=== PATIENT | male | born 1965 | race Caucasian/White ===

== ENCOUNTER 2017-07-13 16:26 | Inpatient (IN) | payer OTHER ==
[~2017-07-13] VITALS: Ht 177.8 cm; Wt 74.8 kg
--- NOTE | 2017-07-13 17:00 | NUR ---
PATIENT TO ED DT LET CLAVICLE LUMP THAT WAS NOTICED YESTERDAY. PATIENT IS COMPLAINING OF DISCOMFORT ON THE SITE. LEFT CLAVICLE NOTED WITH LUMP, REDNESS. PATIENT IS AFEBRILE. DENIES NAUSEA AND VOMITTING. VSS
--- NOTE | 2017-07-13 18:15 | NUR ---
MD AGGARWAL AT BEDSIDE
[2017-07-13 18:41] LABS: BASOPHILS # (AUTO) 0.1 /CMM (0.0-0.2); BASOPHILS % (AUTO) 0.8 % (0.0-2.0); EOSINOPHILS % (AUTO) 0.6 % (0.0-6.0); HEMATOCRIT 39 % (39-51); HEMOGLOBIN 13.4 g/dL (13.5-17.5); LYMPHOCYTES # (AUTO) 1.1 /CMM (0.8-4.8); LYMPHOCYTES % (AUTO) 10.3 % (20.0-44.0); MEAN CORPUSCULAR HGB CONC 34 g/dl (31.0-36.0); MEAN CORPUSCULAR VOLUME 78 fL (80-96); MONOCYTES # (AUTO) 0.6 /CMM (0.1-1.30); MONOCYTES % (AUTO) 5.7 % (2.0-12.0); NEUTROPHILS # (AUTO) 8.8 /CMM (1.8-8.9); NEUTROPHILS % (AUTO) 82.6 % (43.0-81.0); PLATELET COUNT (AUTO) 395 /CMM (150-450); RDW COEFFICIENT OF VARIATION 12.4 (11.5-15.0); RED BLOOD CELL COUNT(AUTO) 5.03 MIL/uL (4.5-6.0); WHITE BLOOD COUNT (AUTO) 10.6 K/uL (4.3-11.0)
[2017-07-13 19:06] LABS: ALBUMIN 2.5 g/dL (3.4-5.0); BILIRUBIN,TOTAL 0.3 mg/dL (0.2-1.0); CREATININE 0.9 mg/dL (0.6-1.3); POTASSIUM 4.4 mmol/L (3.5-5.1); TOTAL PROTEIN, SERUM 8.2 g/dL (6.4-8.2)
--- NOTE | 2017-07-13 19:15 | NUR ---
PATIENT WAS TAKEN TO CT
[2017-07-13] MEDS ORDERED: IOHEXOL-300 100 ML VIAL IV ONE (19:20)
[2017-07-13] MEDS ORDERED: IV NS 0.9% 250 ML IV ONE (19:20)
[2017-07-13 19:23] LABS: INR 0.9 (0.85-1.15)
[2017-07-13] MEDS ORDERED: IV NS 0.9% 1,000 ML BAG IV ONE ×2 (19:30)
--- NOTE | 2017-07-13 19:31 | NUR ---
PATIENT STILL IN CT
[2017-07-13] MEDS ORDERED: INSULIN ASPART/LISPRO 100 UNIT/ML CARTRIDGE SQ STA (20:53)
[2017-07-13] MEDS ORDERED: PIPERACILLIN /TAZOBACTAM 3.375 G in IV D5W 50 ML IV ONE (21:00)
[2017-07-13] MEDS ORDERED: VANCOMYCIN 1 GM in IV D5W 250 ML IV ONE (21:00)
[2017-07-13] MEDS ORDERED: VANCOMYCIN 1 GM VIAL ONE (21:02)
[2017-07-13] MEDS ORDERED: PIPERACILLIN /TAZOBACTAM 3.375 G VIAL IV ONE (21:02)
[2017-07-13] MEDS ORDERED: INSULIN LISPRO/ASPART 100 UNIT/ML CARTRIDGE SQ ONE (21:10)
--- NOTE | 2017-07-13 21:30 | NUR ---
BS IS 407. TO GIVE 6 UNITS OF LISPRO INSULIN
--- NOTE | 2017-07-13 21:32 | NUR ---
WITNESSED RYLAND STERN FOR INSULIN LISPRO ADMINISTRATION.
--- NOTE | 2017-07-13 22:05 | NUR ---
ADMIT TO BED 307-1 RYLAND [place]
--- NOTE | 2017-07-13 22:11 | NUR ---
REPORT GIVEN TO RYLAND OH FOR BLAINE-- VSS
[2017-07-13] MEDS ORDERED: ONDANSETRON HCL/PF 4 MG/2 ML VIAL IVP PRN (22:30)
[2017-07-13] MEDS ORDERED: Z GUARD REMEDY 2 OZ OINT TP PRN (22:30)
[2017-07-13] MEDS ORDERED: MAGNESIUM HYDROXIDE 30 ML UDC PO PRN (22:30)
[2017-07-13] MEDS ORDERED: MAG HYDROX/AL HYDROX/SIMETH 30 ML UDC PO PRN (22:30)
[2017-07-13 22:35] VITALS: BP 137/74
[2017-07-13] MEDS: HYDROCODONE/APAP 5/325MG 1 EACH TABLET PO PRN (23:06)
[2017-07-13] MEDS: IV 1/2NS 1000 ML 1,000 ML IV PRN (23:07)
[2017-07-14] VITALS: BP 137/74
[2017-07-14] MEDS ORDERED: DEXTROSE 50%-WATER 50 ML DISP.SYRIN IV PRN
[2017-07-14] MEDS: BLOOD SUGAR DIAGNOSTIC 1 EACH STRIP IN SCH ×6 (00:15→22:19)
[2017-07-14] MEDS: INSULIN REGULAR, HUMAN 100 UNIT/ML 3 ML VIAL SQ PRN ×5 (00:23→22:17)
[2017-07-14] MEDS: PANTOPRAZOLE 40 MG VIAL IV SCH (00:24)
[2017-07-14] MEDS ORDERED: CEFAZOLIN 1 GM ONE ×2 (00:26→02:38)
[2017-07-14] MEDS ORDERED: DOXYCYCLINE 100 MG VIAL ONE (00:27)
[2017-07-14] MEDS: CEFAZOLIN IV SCH ×2 (00:46→05:01)
[2017-07-14] MEDS: D5W IV SCH ×2 (00:46→05:01)
[2017-07-14] MEDS: HYDROCODONE/APAP 5/325MG 1 EACH TABLET PO PRN ×2 (06:07→22:19)
[2017-07-14 06:37] LABS: BASOPHILS % (AUTO) 0.1 % (0.0-2.0); EOSINOPHILS % (AUTO) 0.2 % (0.0-6.0); HEMATOCRIT 36 % (39-51); HEMOGLOBIN 12.4 g/dL (13.5-17.5); LYMPHOCYTES # (AUTO) 1.2 /CMM (0.8-4.8); LYMPHOCYTES % (AUTO) 11.4 % (20.0-44.0); MEAN CORPUSCULAR HGB CONC 35 g/dl (31.0-36.0); MEAN CORPUSCULAR VOLUME 77 fL (80-96); MONOCYTES # (AUTO) 0.6 /CMM (0.1-1.30); MONOCYTES % (AUTO) 5.4 % (2.0-12.0); NEUTROPHILS # (AUTO) 8.8 /CMM (1.8-8.9); NEUTROPHILS % (AUTO) 82.9 % (43.0-81.0); PLATELET COUNT (AUTO) 378 /CMM (150-450); RDW COEFFICIENT OF VARIATION 13.1 (11.5-15.0); RED BLOOD CELL COUNT(AUTO) 4.63 MIL/uL (4.5-6.0); WHITE BLOOD COUNT (AUTO) 10.6 K/uL (4.3-11.0)
[2017-07-14 06:52] LABS: CALCIUM, SERUM 8.1 mg/dL (8.5-10.1); CREATININE 0.6 mg/dL (0.6-1.3); MAGNESIUM 1.8 mg/dL (1.8-2.4); PHOSPHORUS 2.2 mg/dL (2.5-4.9); POTASSIUM 3.6 mmol/L (3.5-5.1)
--- NOTE | 2017-07-14 07:35 | NUR ---
RN OPENING NOTES RECEIVED PATIENT IN RESTING. A/OX4. NO ACUTE DISTRESS, NO SOB NOTED. DENIED PAIN OR DISCOMFORT AT THIS TIME. IV SITE INTACT AND PATENT. LUMP ON LEFT UPPER CHEST NOTED. KEPT PATIENT SAFE AND COMFORTABLE IN BED. BED IN LOCKED/LOW POSITION, SIDERAILS UPX2, CALL LIGHT WITHIN REACH. WILL CONTINUE TO MONITOR ACCORDINGLY.
[2017-07-14 08:00] VITALS: BP 121/72
[2017-07-14 09:17] LABS: LYMPHOCYTES % (MANUAL) 11 % (16-48); MONOCYTES % (MANUAL) 6 % (0-11.0); NEUTROPHILS % (MANUAL) 83 (42-76)
[2017-07-14] MEDS: DOXYCYCLINE 100 MG in IV NS 0.9% 100 ML IV SCH ×2 (09:58→21:24)
[2017-07-14] MEDS: CEFAZOLIN 1 GM in IV D5W 50 ML IV SCH ×2 (14:47→20:47)
[2017-07-14] MEDS ORDERED: K PHOS NEUTRAL 250 MG TABLET PO ONE (15:30)
[2017-07-14 16:00] VITALS: BP 123/68
[2017-07-14] MEDS: LACTOBACILLUS RHAMNOSUS GG 1 EACH CAP.SPRINK PO SCH (16:28)
[2017-07-14] MEDS ORDERED: MORPHINE SULFATE INJ 2 MG/ML DISP.SYRIN IV PRN (19:00)
--- NOTE | 2017-07-14 19:16 | NUR ---
RN NOTES NO ACUTE DISTRESS, NO SOB NOTED. DENIED PAIN AND DISCOMFORT AT THE MOMENT. ALL NEEDS ATTENDED AND PROVIDED. KEPT PATIENT COMFORTABLE IN BED. BED IN LOW/LOCKED POSITION, SIDRAILS UPX2, CALL LIGHT IN REACH. ENDORSED TO NIGHT RN FOR BLAINE.
--- NOTE | 2017-07-14 19:30 | NUR ---
MS/RN RECEIVE PATIENT AWAKE, ALERT, ORIENTED, COMFORTABLE, NO C/O PAIN, NO DISTRESS NOTED, CALL LIGHT IN REACH. WILL MONITOR.
[2017-07-14 20:00] VITALS: BP 123/78
--- NOTE | 2017-07-14 23:35 | NUR ---
MS/RN PATIENT IS SLEEPING AT THIS TIME, EASILY AROUSABLE, APPEAR COMFORTABLE, NO SIGNS OF DISTRESS NOTED, CALL LIGHT IN REACH, WILL CONTINUE TO MONITOR.
[2017-07-15] MEDS: PANTOPRAZOLE 40 MG VIAL IV SCH ×2 (00:14→23:53)
[2017-07-15] MEDS: INSULIN REGULAR, HUMAN 100 UNIT/ML 3 ML VIAL SQ PRN ×5 (01:36→21:32)
[2017-07-15] MEDS: BLOOD SUGAR DIAGNOSTIC 1 EACH STRIP IN SCH ×6 (01:37→21:31)
[2017-07-15] MEDS: IV 1/2NS 1000 ML 1,000 ML IV PRN (03:23)
[2017-07-15] MEDS: CEFAZOLIN 1 GM in IV D5W 50 ML IV SCH ×2 (05:02→12:40)
--- NOTE | 2017-07-15 06:33 | NUR ---
MS/RN PATIENT AWAKE AT THIS TIME, COMFORTABLE, NO DISTRESS NOTE, ALL NEEDS ATTENDED AT THIS TIME. WILL CONTINUE TO MONITOR.
[2017-07-15 07:09] LABS: BASOPHILS % (AUTO) 0.2 % (0.0-2.0); EOSINOPHILS % (AUTO) 0.5 % (0.0-6.0); HEMATOCRIT 36 % (39-51); HEMOGLOBIN 12.4 g/dL (13.5-17.5); LYMPHOCYTES # (AUTO) 1.2 /CMM (0.8-4.8); LYMPHOCYTES % (AUTO) 13.7 % (20.0-44.0); MEAN CORPUSCULAR HGB CONC 34 g/dl (31.0-36.0); MEAN CORPUSCULAR VOLUME 78 fL (80-96); MONOCYTES # (AUTO) 0.7 /CMM (0.1-1.30); MONOCYTES % (AUTO) 8.4 % (2.0-12.0); NEUTROPHILS # (AUTO) 6.6 /CMM (1.8-8.9); NEUTROPHILS % (AUTO) 77.2 % (43.0-81.0); PLATELET COUNT (AUTO) 369 /CMM (150-450); RDW COEFFICIENT OF VARIATION 13.1 (11.5-15.0); RED BLOOD CELL COUNT(AUTO) 4.67 MIL/uL (4.5-6.0); WHITE BLOOD COUNT (AUTO) 8.6 K/uL (4.3-11.0)
[2017-07-15 07:35] LABS: CALCIUM, SERUM 7.9 mg/dL (8.5-10.1); CREATININE 0.6 mg/dL (0.6-1.3); PHOSPHORUS 3.3 mg/dL (2.5-4.9); POTASSIUM 3.4 mmol/L (3.5-5.1)
[2017-07-15] MEDS: LACTOBACILLUS RHAMNOSUS GG 1 EACH CAP.SPRINK PO SCH ×2 (08:21→16:33)
[2017-07-15] MEDS: FENTANYL PF 100MCG/2ML AMPUL IV PRN ×2 (08:23→16:42)
[2017-07-15 08:53] VITALS: BP 129/74
[2017-07-15] MEDS: DOXYCYCLINE 100 MG in IV NS 0.9% 100 ML IV SCH (08:56)
[2017-07-15] MEDS ORDERED: POTASSIUM CHLORIDE 20 MEQ TAB.PRT.SR PO ONE (11:00)
[2017-07-15 16:02] VITALS: BP 152/69
--- NOTE | 2017-07-15 17:03 | NUR ---
[place] NOTES BS 412, 20 UNITS REGULAR INSULIN GIVEN, JUAN JOSE RIVERO NP NOTIFIED Addendum: 07/15/17 at 1704 by DEQUAN COSTELLO DANIELA HOBBS
[2017-07-15] MEDS: INSULIN LISPRO/ASPART 100 UNIT/ML CARTRIDGE SQ SCH (19:22)
--- NOTE | 2017-07-15 19:25 | NUR ---
RN CLOSING NOTES PATIENT IN BED RESTING. NO ACUTE DISTRESS, NO SOB NOTED. ALL NEEDS ATTENDED AND PROVIDED. PAIN MANAGEMENT DONE, PAIN MEDS GIVEN ORDERED. KEPT PATIENT SAFE AND COMFORTABLE. BED IN LOW/LOCKED POSITION, SIDERAILS UPX2, CALL LIGHT IN REACH. ENDORSED TO NIGHT RN FOR BLAINE.
--- NOTE | 2017-07-15 19:25 | NUR ---
MS/RN NOTES RECEIVED PT. LYING IN BED. PT. IS AWAKE, ALERT AND ORIENTED X 4. BREATHING EVEN AND UNLABORED ON ROOM AIR. NO SOB, RESPIRATORY DISTRESS OR COMPLAINTS OF PAIN NOTED AT THIS TIME. PT. WITH RIGHT FOREARM 22 GAUGE PERIPHERAL IV PRESENT, PATENT AND INTACT ADMINISTERING TO PT. 1/2 NS @ 75 ML/HR. NO S/S OF HYPO/HYPERGLYCEMIA NOTED AT THIS TIME. WILL CONTINUE WITH EVERY 4 HOUR ACCUCHECKS ORDERED. BED LOCKED AND IN LOWEST POSITION, SIDE RAILS UP X2, CALL LIGHT WITHIN REACH, WILL CONTINUE TO MONITOR.
[2017-07-15 20:00] VITALS: BP 128/65
[2017-07-15] MEDS ORDERED: FEE PK DOSING 1 MIN EA MC ONE (20:32)
[2017-07-15] MEDS ORDERED: VANCOMYCIN 1 GM in IV D5W 250 ML IV ONE (21:00)
[2017-07-15] MEDS: INSULIN GLARGINE, 100 UNIT/ML CARTRIDGE SQ SCH (21:33)
[2017-07-15] MEDS: PIPERACILLIN /TAZOBACTAM 3.375 G in IV D5W 50 ML IV SCH (23:53)
[2017-07-16] MEDS: BLOOD SUGAR DIAGNOSTIC 1 EACH STRIP IN SCH ×6 (01:34→21:45)
[2017-07-16] MEDS: IV 1/2NS 1000 ML 1,000 ML IV PRN ×2 (01:36→21:47)
[2017-07-16] MEDS: INSULIN REGULAR, HUMAN 100 UNIT/ML 3 ML VIAL SQ PRN ×6 (01:36→21:46)
[2017-07-16] MEDS: PIPERACILLIN /TAZOBACTAM 3.375 G in IV D5W 50 ML IV SCH ×3 (05:45→17:37)
[2017-07-16 06:29] LABS: CALCIUM, SERUM 8.3 mg/dL (8.5-10.1); CREATININE 0.6 mg/dL (0.6-1.3); POTASSIUM 3.9 mmol/L (3.5-5.1)
[2017-07-16 06:30] LABS: HDL CHOLESTEROL 28 mg/dL (40-60); LDL 62 mg/dL (0-99); TRIGLYCERIDES 87 mg/dL (30-150)
[2017-07-16 06:32] LABS: BASOPHILS % (AUTO) 0.1 % (0.0-2.0); EOSINOPHILS % (AUTO) 0.9 % (0.0-6.0); HEMATOCRIT 37 % (39-51); HEMOGLOBIN 12.5 g/dL (13.5-17.5); LYMPHOCYTES # (AUTO) 1.2 /CMM (0.8-4.8); LYMPHOCYTES % (AUTO) 19.3 % (20.0-44.0); MEAN CORPUSCULAR HGB CONC 34 g/dl (31.0-36.0); MEAN CORPUSCULAR VOLUME 78 fL (80-96); MONOCYTES # (AUTO) 0.5 /CMM (0.1-1.30); NEUTROPHILS # (AUTO) 4.6 /CMM (1.8-8.9); NEUTROPHILS % (AUTO) 71.7 % (43.0-81.0); PLATELET COUNT (AUTO) 386 /CMM (150-450); RED BLOOD CELL COUNT(AUTO) 4.71 MIL/uL (4.5-6.0); WHITE BLOOD COUNT (AUTO) 6.4 K/uL (4.3-11.0)
--- NOTE | 2017-07-16 06:32 | NUR ---
MS/RN NOTES PT. IS LYING IN BED RESTING. BREATHING EVEN AND UNLABORED ON ROOM AIR. NO SOB, RESPIRATORY DISTRESS OR COMPLAINTS OF PAIN NOTED AT THIS TIME AND THROUGHOUT SHIFT. PT. WITH RIGHT FOREARM 22 GAUGE PERIPHERAL IV PRESENT, PATENT AND INTACT ADMINISTERING TO PT. 1/2 NS @ 75 ML/HR. NO S/S OF HYPO/HYPERGLYCEMIA NOTED AT THIS TIME AND THROUGHOUT SHIFT. ALL PT. NEEDS MET. BED LOCKED AND IN LOWEST POSITION, SIDE RAILS UP X2, CALL LIGHT WITHIN REACH, WILL ENDORSE TO DAYSHIFT NURSE FOR CONTINUITY OF CARE.
[2017-07-16 06:41] LABS: CHOLESTEROL 101 mg/dL (<200)
[2017-07-16] MEDS: VANCOMYCIN 1 GM in IV D5W 250 ML IV SCH ×3 (06:48→21:47)
[2017-07-16 08:00] VITALS: BP 122/74
--- NOTE | 2017-07-16 08:00 | NUR ---
MS/RN AM NOTES PT. IS LYING IN BED RESTING. BREATHING EVEN AND UNLABORED ON ROOM AIR. NO SOB, RESPIRATORY DISTRESS.WITH COMPLAINTS OF LT CW PAIN NOTED -NORCO GIVEN FOR PAIN MGT.WITH RIGHT FOREARM 22 GAUGE PERIPHERAL IV PRESENT, PATENT AND INTACT ADMINISTERING TO PT. 1/2 NS @ 75 ML/HR INFUSING WELL. NO S/S OF HYPO/HYPERGLYCEMIA NOTED.PT. NEEDS MET. BED LOCKED AND IN LOWEST POSITION, SIDE RAILS UP X2, CALL LIGHT WITHIN REACH,
[2017-07-16] MEDS: LACTOBACILLUS RHAMNOSUS GG 1 EACH CAP.SPRINK PO SCH ×2 (08:28→17:37)
[2017-07-16] MEDS: HYDROCODONE/APAP 5/325MG 1 EACH TABLET PO PRN ×3 (08:28→21:49)
[2017-07-16] MEDS: INSULIN LISPRO/ASPART 100 UNIT/ML CARTRIDGE SQ SCH ×2 (08:34→17:41)
--- NOTE | 2017-07-16 15:33 | NUR ---
DR ARVIZU CAME TO SEE THE PT AND STATED THAT THE PT IS HIV POSITIVE DUE TO THE LAB TEST RESULT.
--- NOTE | 2017-07-16 15:34 | NUR ---
PAGED PHYLLIS JACK NP TO NOTIFY HIM ABOUT THE HIV RESULT.
[2017-07-16 16:00] VITALS: BP 118/73
--- NOTE | 2017-07-16 18:39 | NUR ---
PT RESTING IN BED DENYING ANY PAIN OR DISTRESS.WATCHING TV.CALL LIGHT PLACED WITHIN REACH.
--- NOTE | 2017-07-16 19:10 | NUR ---
MS/RN NOTES RECEIVED PT. LYING IN BED. PT. IS AWAKE, ALERT AND ORIENTED X 4. BREATHING EVEN AND UNLABORED ON ROOM AIR. NO SOB, RESPIRATORY DISTRESS OR COMPLAINTS OF PAIN NOTED AT THIS TIME. PT. WITH RIGHT FOREARM 22 GAUGE PERIPHERAL IV PRESENT, PATENT AND INTACT ADMINISTERING TO PT. 1/2 NS @ 75 ML/HR. BED LOCKED AND IN LOWEST POSITION, SIDE RAILS UP X2, CALL LIGHT WITHIN REACH, WILL CONTINUE TO MONITOR.
[2017-07-16 20:00] VITALS: BP 118/67
[2017-07-16] MEDS: INSULIN GLARGINE, 100 UNIT/ML CARTRIDGE SQ SCH (21:47)
[2017-07-17] MEDS: PANTOPRAZOLE 40 MG VIAL IV SCH ×2 (00:40→23:59)
[2017-07-17] MEDS: PIPERACILLIN /TAZOBACTAM 3.375 G in IV D5W 50 ML IV SCH ×5 (00:40→23:59)
[2017-07-17] MEDS: BLOOD SUGAR DIAGNOSTIC 1 EACH STRIP IN SCH ×6 (01:04→21:16)
[2017-07-17] MEDS: INSULIN REGULAR, HUMAN 100 UNIT/ML 3 ML VIAL SQ PRN ×6 (01:05→21:18)
--- NOTE | 2017-07-17 03:20 | NUR ---
MS/RN NOTES GAVE REPORT AND ENDORSED PT. TO RYLAND MCKEON. PT. IS LYING IN BED RESTING. NO S/S OF HYPO/HYPERGLYCEMIA NOTED AT THIS TIME.
--- NOTE | 2017-07-17 03:43 | NUR ---
ms/rn notes RECEIVED ENDORSEMENT FROM RYLAND CLEMENTS FOR BLAINE, PATIENT RESTING COMFORTABLY WILL CONTINUE CARE, MONITOR HYPO/HYPERGLYCEMIA. ADMINISTER IV ANTIBIOTIC, CALL LIGHTS WITHIN REACH WILL MONITOR.
[2017-07-17] MEDS: VANCOMYCIN 1 GM in IV D5W 250 ML IV SCH ×3 (04:58→21:15)
[2017-07-17 06:08] LABS: *BASOS 0 % (Not Estab.); *EOS 2 % (Not Estab.); *EOS, ABSOLUTE 0.1 x10E3/uL (0.0-0.4); *HCT 36.5 % (37.5-51.0); *IMMATURE GRANULOCYTES 1 % (Not Estab.); *LYMPHOCYTES 20 % (Not Estab.); *LYMPHS, ABSOLUTE 1.3 x10E3/uL (0.7-3.1); *MCH 26.6 pg (26.6-33.0); *MCHC 32.9 g/dL (31.5-35.7); *MCV 81 fL (79-97); *MONOCYTES 8 % (Not Estab.); *MONOS, ABSOLUTE 0.5 x10E3/uL (0.1-0.9); *NEUTROPHILS 69 % (Not Estab.); *NEUTROPHILS, ABSOLUTE 4.4 x10E3/uL (1.4-7.0); *PLT 386 x10E3/uL (150-379); *RBC 4.51 x10E6/uL (4.14-5.80); *RDW 13.1 % (12.3-15.4)
--- NOTE | 2017-07-17 06:50 | NUR ---
307 ms/rn notes PATIENT IN BED, ALERT, ORIENTED ABLE TO VERBALIZE NEEDS, NO PAIN REPORTED, DISCUSSED PLAN OF CARE, BLOOD SUGAR CHECK, SLIDING SCALE INSULIN 8 UNIT GIVEN, ABLE TO WALK TO BATHROOM, KEPT COMFORTABLE, ABLE TO SLEEP DURING THE NIGHT, IV ANTIBITOIC INFUSED/ADMINISTERED , MONITORING FOR ANY S/S OF ADVERSE EFFECT, WILL ENDORSE TO AM RN FOR BLAINE.
--- NOTE | 2017-07-17 07:10 | NUR ---
RN OPENING NOTES RECEIVED PT. IN BED A&OX4. BREATHING UNLABORED, AND EVENLY ON ROOM AIR. NO S/S OF ACUTE DISTRESS. IV ANTIBIOTICS RUNNING. BED IS IN LOWEST, AND LOCKED POSITION. 2 SIDE RAILS UP, AND INSTRUCTED PT. TO USE CALL LIGHT FOR ASSISTANCE. ALL NEEDS MET. WILL CONTINUE TO ASSESS AND MONITOR.
[2017-07-17 07:39] LABS: CALCIUM, SERUM 8.2 mg/dL (8.5-10.1); CREATININE 0.7 mg/dL (0.6-1.3); POTASSIUM 4.1 mmol/L (3.5-5.1)
[2017-07-17] MEDS: ACETAMINOPHEN 325 MG TABLET PO PRN (07:43)
[2017-07-17 08:00] VITALS: BP 115/74
[2017-07-17] MEDS: LACTOBACILLUS RHAMNOSUS GG 1 EACH CAP.SPRINK PO SCH ×2 (08:52→18:04)
[2017-07-17] MEDS: INSULIN LISPRO/ASPART 100 UNIT/ML CARTRIDGE SQ SCH ×2 (08:57→18:24)
--- NOTE | 2017-07-17 09:00 | NUR ---
RN ACCUCHECK CORRECT BLOOD SUGAR IS 304 MG/DL, INCORRECTLY RECORDED IN EMAR 307 MG/DL. CORRECT INSULIN DOSAGE WAS ADMINISTERED PER SLIDING SCALE PROTOCOL.
[2017-07-17 12:10] LABS: *% CD 4 POS. LYMPH 20.5 % (30.8-58.5); *% CD 8 POS. LYMPH 64.8 % (12.0-35.5); *ABSOLUTE CD 4 HELPER 267 /uL (359-1519); *ABSOLUTE CD 8 SUPPRESSOR 842 /uL (109-897); *CD4/CD8 RATIO 0.32 (0.92-3.72)
[2017-07-17 16:00] VITALS: BP 120/71
[2017-07-17] MEDS ORDERED: PENICILLIN G BENZATHINE 2.4 MMU/4 ML ML IM ONE (17:00)
--- NOTE | 2017-07-17 19:30 | NUR ---
RN CLOSING NOTES PT. IS IN BED A&OX4. BREATHING UNLABORED, AND EVENLY ON ROOM AIR. NO S/S OF ACUTE DISTRESS. BED IS IN LOWEST, AND LOCKED POSITION. IV FLUIDS RUNNING AT 75 ML/HR. 2 SIDE RAILS UP, AND INSTRUCTED PT. TO USE CALL LIGHT FOR ASSISTANCE. ALL NEEDS MET. WILL ENDORSE REPORT TO NURSE.
--- NOTE | 2017-07-17 19:35 | NUR ---
MS RN NOTE RECEIVED PATIENT FROM DAY SHIFT, PATIENT IS ALERT AND ORIENTEDX4, AMBULATORY, DENIES RESPIRATORY DISTRESS OR PAIN AT THIS TIME. IV ON RIGHT FA IS PATENT AND INTACT, FLUID IS RUNNING. SRX2, BED IN LOW POSITION, CALL LIGHT WITHIN REACH, WILL CONTINUE TO MONITOR PATIENT.
[2017-07-17 20:00] VITALS: BP 113/67
[2017-07-17] MEDS: INSULIN GLARGINE, 100 UNIT/ML CARTRIDGE SQ SCH (21:17)
[2017-07-18] MEDS: IV 1/2NS 1000 ML 1,000 ML IV PRN ×2 (00:02→18:22)
[2017-07-18] MEDS: INSULIN REGULAR, HUMAN 100 UNIT/ML 3 ML VIAL SQ PRN ×6 (01:03→21:06)
[2017-07-18] MEDS: BLOOD SUGAR DIAGNOSTIC 1 EACH STRIP IN SCH ×6 (01:04→20:57)
[2017-07-18] MEDS: PIPERACILLIN /TAZOBACTAM 3.375 G in IV D5W 50 ML IV SCH ×2 (05:12→12:01)
[2017-07-18] MEDS: VANCOMYCIN 1 GM in IV D5W 250 ML IV SCH (06:09)
--- NOTE | 2017-07-18 06:44 | NUR ---
MS RN NOTE PATIENT IS RESTING IN BED COMFORTABLY, NO ACUTE EVENT NOTED THROUGHOUT THE SHIFT. ALL DUE MEDS GIVEN, MORNING CARE RENDERED. IV ON RIGHT FA IS PATENT AND INTACT, ABX IS RUNNING. WILL ENDORSE TO DAY SHIFT FOR BLAINE.
[2017-07-18 06:47] LABS: INR 0.95 (0.87-1.13)
[2017-07-18 06:49] LABS: BASOPHILS % (AUTO) 0.4 % (0.0-2.0); EOSINOPHILS % (AUTO) 1.2 % (0.0-6.0); HEMATOCRIT 37 % (39-51); HEMOGLOBIN 12.3 g/dL (13.5-17.5); LYMPHOCYTES # (AUTO) 1.1 /CMM (0.8-4.8); LYMPHOCYTES % (AUTO) 24.2 % (20.0-44.0); MEAN CORPUSCULAR HGB CONC 34 g/dl (31.0-36.0); MEAN CORPUSCULAR VOLUME 78 fL (80-96); MONOCYTES # (AUTO) 0.4 /CMM (0.1-1.30); MONOCYTES % (AUTO) 7.8 % (2.0-12.0); NEUTROPHILS % (AUTO) 66.4 % (43.0-81.0); PLATELET COUNT (AUTO) 396 /CMM (150-450); RDW COEFFICIENT OF VARIATION 13.4 (11.5-15.0); RED BLOOD CELL COUNT(AUTO) 4.71 MIL/uL (4.5-6.0); WHITE BLOOD COUNT (AUTO) 4.6 K/uL (4.3-11.0)
[2017-07-18 06:55] LABS: CALCIUM, SERUM 8.6 mg/dL (8.5-10.1); CREATININE 0.6 mg/dL (0.6-1.3); POTASSIUM 3.8 mmol/L (3.5-5.1)
[2017-07-18 06:58] LABS: IRON, SERUM 30 ug/dl (50-175); TOTAL IRON BINDING CAPACITY 181 ug/dl (250-450)
[2017-07-18 07:09] LABS: FERRITIN 734 ng/mL (8-388)
--- NOTE | 2017-07-18 07:10 | NUR ---
RN OPENING NOTES RECEIVED PT. IN BED A&OX4. BREATHING UNLABORED, AND EVENLY ON ROOM AIR. NO S/S OF ACUTE DISTRESS. PT. DENIES PAIN. IV FLUIDS RUNNING AT 75 ML/HR. BED IS IN LOWEST, AND LOCKED POSITION. 2 SIDE RAILS UP, AND INSTRUCTED PT. TO USE CALL LIGHT FOR ASSISTANCE. ALL NEEDS MET. WILL CONTINUE TO ASSESS AND MONITOR.
[2017-07-18 08:00] VITALS: BP 125/78
[2017-07-18] MEDS: LACTOBACILLUS RHAMNOSUS GG 1 EACH CAP.SPRINK PO SCH ×2 (09:04→17:20)
[2017-07-18] MEDS: ACETAMINOPHEN 325 MG TABLET PO PRN (09:04)
[2017-07-18] MEDS: INSULIN LISPRO/ASPART 100 UNIT/ML CARTRIDGE SQ SCH ×2 (09:10→18:18)
[2017-07-18] MEDS ORDERED: VANCOMYCIN 1.25 GM in IV D5W 500 ML IV SCH (13:00)
[2017-07-18 16:00] VITALS: BP 127/73
[2017-07-18] MEDS: PIPERACILLIN /TAZOBACTAM 3.375 G in IV NS 0.9% 50 ML IV SCH (17:30)
--- NOTE | 2017-07-18 19:05 | NUR ---
RN CLOSING NOTES PT. IS IN BED A&OX4. BREATHING UNLABORED, AND EVENLY ON ROOM AIR. NO S/S OF ACUTE DISTRESS. PT. DENIES PAIN. IV FLUIDS RUNNING AT 75 ML/HR. BED IS IN LOWEST, AND LOCKED POSITION. 2 SIDE RAILS UP, AND INSTRUCTED PT. TO USE CALL LIGHT FOR ASSISTANCE. ALL NEEDS MET. WILL ENDORSE REPORT TO NURSE.
[2017-07-18 20:00] VITALS: BP 133/76
[2017-07-18] MEDS: VANCOMYCIN 1.25 GM in IV NS 0.9% 500 ML IV SCH (20:59)
[2017-07-18] MEDS: INSULIN GLARGINE, 100 UNIT/ML CARTRIDGE SQ SCH (21:08)
--- NOTE | 2017-07-19 | NUR ---
RN NOTES. NEW IV LINE INSERTED ON THE LEFT FOREARM#20
[2017-07-19] MEDS: PANTOPRAZOLE 40 MG VIAL IV SCH ×2 (00:14→23:07)
[2017-07-19] MEDS: PIPERACILLIN /TAZOBACTAM 3.375 G in IV NS 0.9% 50 ML IV SCH ×5 (00:15→23:07)
[2017-07-19] MEDS: BLOOD SUGAR DIAGNOSTIC 1 EACH STRIP IN SCH ×6 (00:15→20:59)
[2017-07-19] MEDS: INSULIN REGULAR, HUMAN 100 UNIT/ML 3 ML VIAL SQ PRN ×6 (00:22→21:02)
[2017-07-19] MEDS: VANCOMYCIN 1.25 GM in IV NS 0.9% 500 ML IV SCH ×2 (06:36→13:40)
--- NOTE | 2017-07-19 06:44 | NUR ---
RN NOTES AWAKE, DENIES PAIN, MORNING CARE RENDERED, NO SOB, CALL LIGHT WITHIN REACH, SIDERAILUPX2, PT. NEEDS ATTENDED
[2017-07-19 07:07] LABS: CALCIUM, SERUM 8.7 mg/dL (8.5-10.1); CREATININE 0.8 mg/dL (0.6-1.3); POTASSIUM 4.3 mmol/L (3.5-5.1)
[2017-07-19 08:00] VITALS: BP 120/77
[2017-07-19] MEDS: LACTOBACILLUS RHAMNOSUS GG 1 EACH CAP.SPRINK PO SCH ×2 (08:52→16:51)
[2017-07-19] MEDS: INSULIN LISPRO/ASPART 100 UNIT/ML CARTRIDGE SQ SCH ×2 (09:00→17:36)
--- NOTE | 2017-07-19 09:00 | NUR ---
MS RN NOTES A/O X4, COOPERATIVE. TOLERATING ROOM AIR, NO SOB. DENIES PAIN. IV ANTIBIOTIC VANCOMYCIN INFUSING. GOOD APPETITE, DUE MEDS GIVEN. SAFETY PRECAUTION MAINTAIN. WILL CONT TO MONITOR.
[2017-07-19 16:46] VITALS: BP 123/72
--- NOTE | 2017-07-19 18:38 | NUR ---
MS RN CLOSING NOTES DENIES PAIN DURING THE SHIFT, BLOOD SUGAR MONITORED WITH ISS PARAMETERS GIVEN. US LEFT UPPER CHEST RESULTED NO EVIDENCE OF SOLID MASS OR ABSCESS, PER RADIOLOGIST DOES NOT MEET BIOPSY CRITERIA, US GUIDED NEEDLE BIOPSY WAS CANCELLED. PATIENT INFORMED. DR. ARVIZU IS AWARE. SAFETY PRECAUTION MAINTAIN. WILL ENDORSE TO ONCOMING RN.
--- NOTE | 2017-07-19 19:30 | NUR ---
MS RN OPENING NOTES: PATIENT IN BED, AOX4, ON ROOM AIR, BREATHING EVEN AND UNLABORED. APPEARS CALM AND IN NO DISTRESS, DENIES PAIN. NOTED THAT UPPER LEFT SUBCLAVICULAR AREA HAS NOTICEABLE LUMP, WITH SLIGHT REDNESS AND WARMTH, BUT HE DENIES PAIN OVER IT NOW. PIV OVER LFA G 20 INTACT AND PATENT TO FLUSH. PROVIDED FOR COMFORT AND SAFETY. BED IN LOWEST AND LOCKED POSITION, SIDERAILS UP X 2,CALL LIGHT WITHIN REACH. WILL CONT TO MONITOR.
[2017-07-19 20:00] VITALS: BP 111/64
--- NOTE | 2017-07-19 21:00 | NUR ---
RN NOTES: BLOOD SUGAR CHECKED AT 334 MG/DL, ADMINISTERED 16 UNITS REGULAR INSULIN. GAVE LIGHT SNACK WELL. WILL CONT TO MONITOR.
[2017-07-19] MEDS: INSULIN GLARGINE, 100 UNIT/ML CARTRIDGE SQ SCH (21:03)
[2017-07-20] MEDS: BLOOD SUGAR DIAGNOSTIC 1 EACH STRIP IN SCH ×6 (01:07→21:08)
[2017-07-20] MEDS: VANCOMYCIN 1.25 GM in IV D5W 500 ML IV SCH ×2 (01:08→13:38)
[2017-07-20] MEDS: INSULIN REGULAR, HUMAN 100 UNIT/ML 3 ML VIAL SQ PRN ×6 (01:18→21:12)
--- NOTE | 2017-07-20 01:25 | NUR ---
RN NOTES: BLOOD SUGAR CHECKED AT 373 MG/DL, ADMINISTERED 20 UNITS REGULAR INSULIN PER SCALE. WILL CONT TO MONITOR.
[2017-07-20] MEDS: IV 1/2NS 1000 ML 1,000 ML IV PRN ×2 (04:57→19:17)
[2017-07-20] MEDS: PIPERACILLIN /TAZOBACTAM 3.375 G in IV NS 0.9% 50 ML IV SCH ×4 (05:35→23:29)
--- NOTE | 2017-07-20 06:45 | NUR ---
MS RN CLOSING NOTES: PATIENT IN BED, AOX4, ON ROOM AIR, BREATHING EVEN AND UNLABORED. APPEARS CALM AND IN NO DISTRESS.DENIES PAIN. PIV OVER LFA G20 INTACT AND INFUSING WELL WITH 1/2 NS RUNNING AT 75 ML/HR. DUE MEDS GIVEN. PROVIDED FOR COMFORT AND SAFETY. BED IN LOWEST AND LOCKED POSITION, SIDERAILS UPX 3, CALL LIGHT WITHIN REACH. WILL ENDORSE TO AM RN FOR BLAINE.
[2017-07-20 06:56] LABS: CALCIUM, SERUM 8.4 mg/dL (8.5-10.1); CREATININE 0.8 mg/dL (0.6-1.3); POTASSIUM 4.1 mmol/L (3.5-5.1)
[2017-07-20 08:00] VITALS: BP 100/66
[2017-07-20] MEDS: LACTOBACILLUS RHAMNOSUS GG 1 EACH CAP.SPRINK PO SCH ×2 (09:13→16:47)
[2017-07-20] MEDS: INSULIN LISPRO/ASPART 100 UNIT/ML CARTRIDGE SQ SCH ×2 (09:24→18:18)
--- NOTE | 2017-07-20 09:30 | NUR ---
MS RN NOTES A/O X4, COOPERATIVE. TOLERATING ROOM AIR, NO SOB. DENIES PAIN. GOOD APPETITE, DUE MEDS GIVEN. ELEVATED BLOOD SUGAR, CONT MONITOR, ON ISS PARAMETERS. SAFETY PRECAUTION MAINTAIN. WILL CONT TO MONITOR.
[2017-07-20 16:00] VITALS: BP 119/69
--- NOTE | 2017-07-20 18:27 | NUR ---
MS RN CLOSING NOTES DENIES PAIN DURING THE SHIFT, BLOOD SUGAR MONITORED WITH ISS PARAMETERS. SEEN BY JOSEFA/EMBOSSING TOOLSETTER TODAY, CHANGES IN INSULIN DOSE ORDERED TO MANAGE BLOOD SUGAR LEVEL. US LEFT UPPER CHEST RESULTED 07/19/17 NO EVIDENCE OF SOLID MASS OR ABSCESS, PER RADIOLOGIST DOES NOT MEET BIOPSY CRITERIA, US GUIDED NEEDLE BIOPSY WAS CANCELLED AGAIN. PER JOSEFA/EMBOSSING TOOLSETTER, SURGICAL CONSULT, PLAN TO DO BIOPSY TONIGHT 07/20/17. DR. ARVIZU IS AWARE. SAFETY PRECAUTION MAINTAIN. PATIENT MOVE TO MS 2 ROOM 202, TRANSFERRED VIA WHEELCHAIR WITH ALL PERSONAL BELONGINGS AND HOSP MEDS. ACCOMPANIED BY RYLAND VELOZ. WILL ENDORSE TO ONCOMING RN.
--- NOTE | 2017-07-20 18:30 | NUR ---
ms rn notes received report from 3 west RN for continuity of care. Patient is alert and oriented, no complaint of pain or discomfort. IV intact and patent with IVF infusing well. Will continue to monitor.
--- NOTE | 2017-07-20 19:29 | NUR ---
ms rn closing notes All needs provided, attended, and anticipated. In stable condition. Endorsed to next shift RN to continue care.
--- NOTE | 2017-07-20 19:30 | NUR ---
MS/RN OPENING NOTES PT RECEIVED AWAKE, LAYING IN BED. A/OX4. ON ROOM AIR, BREATHING EVEN AND UNLABORED. DENIES SOB OR PAIN THE LUMP ON LEFT UPPER CHEST. IV TO LFA PATENT AND INTACT RUNNING IVF ORDERED. BED IN LOW/LOCKED POSITION WITH CALL LIGHT IN REACH. SIDE RAILS UPX2. WILL CONTINUE TO MONITOR
[2017-07-20 19:48] VITALS: BP 120/67
[2017-07-20 20:00] VITALS: BP 120/67
--- NOTE | 2017-07-20 21:00 | NUR ---
MS/RN NOTES BLOOD EVQCP=736, SCHEDULED LANTUS 17 UNITS AND SLIDING SCALE 4 UNITS ADMINISTERED. SNACKS ENCOURAGED. EDUCATED PT ON S/S OF HYPER/HYPOGLYCEMIA. WILL MONITOR
[2017-07-20] MEDS ORDERED: INSULIN GLARGINE, 100 UNIT/ML CARTRIDGE SQ SCH (22:00)
[2017-07-20] MEDS: PANTOPRAZOLE 40 MG VIAL IV SCH (23:29)
--- NOTE | 2017-07-21 01:00 | NUR ---
MS/RN NOTES BLOOD TAEPI=053, 8 UNITS PER SLIDING SCALE ADMINISTERED. WILL MONITOR FOR S/S OF HYPO/HYPERGLYCEMIA
[2017-07-21] MEDS: VANCOMYCIN 1.25 GM in IV D5W 500 ML IV SCH (01:08)
[2017-07-21] MEDS: BLOOD SUGAR DIAGNOSTIC 1 EACH STRIP IN SCH ×3 (01:08→08:44)
[2017-07-21] MEDS: INSULIN REGULAR, HUMAN 100 UNIT/ML 3 ML VIAL SQ PRN ×2 (01:15→05:24)
[2017-07-21] MEDS: PIPERACILLIN /TAZOBACTAM 3.375 G in IV NS 0.9% 50 ML IV SCH (05:18)
--- NOTE | 2017-07-21 07:10 | NUR ---
REPORT RECEIVED AT THE BEDSIDE. PATIENT IS RESTING COMFORTABLY IN BED. NO SOB OR DISTRESS NOTED AT THIS TIME. PATIENT DENIES PAIN AT THIS TIME. BED IN A LOW POSITION, CALL LIGHT WITHIN PATIENT REACH. WILL CONTINUE TO MONITOR.
--- NOTE | 2017-07-21 07:20 | NUR ---
MS/RN CLOSING NOTES PT AWAKE, A/OX4. ON ROOM AIR, BREATHING EVEN AND UNLABORED. DENIES SOB OR PAIN AT THIS TIME. IV'S INFILTRATED AND RESTARTED AND IV TO RIGHT HAND #22. IVF CONTINUED. NO SIGNIFICANT CHANGES OVERNIGHT. KEPT PT COMFORTABLE DURING SHIFT. ALL NEEDS MET. BED IN LOW/LOCKED POSITION WITH CALL LIGHT IN REACH. SIDE RAILS UPX2. ENDORSED TO DAY SHIFT RN BLAINE.
[2017-07-21 07:25] LABS: CALCIUM, SERUM 8.4 mg/dL (8.5-10.1); CREATININE 0.7 mg/dL (0.6-1.3)
[2017-07-21 08:00] VITALS: BP 111/67
--- NOTE | 2017-07-21 08:10 | NUR ---
JUAN JOSE CONTROL CLERK AUDITING ON THE FLOOR AND STATES THE PATIENT WILL BE DISCHARGED. WENT TO PATIENT ROOM TO TAKE DISCHARGE PHOTOS. PT STATES "YOU DID THIS ALREADY." EXPLAINED THE IMPORTANCE OF DISCHARGE PHOTOS. PATIENT LIFTS SHIRT AND STATES "IT DIDN'T CHANGE SEE." PT DECLINE DISCHARGE PHOTOS.
[2017-07-21] MEDS: LACTOBACILLUS RHAMNOSUS GG 1 EACH CAP.SPRINK PO SCH (08:44)
[2017-07-21] MEDS: INSULIN LISPRO/ASPART 100 UNIT/ML CARTRIDGE SQ SCH (08:45)
--- NOTE | 2017-07-21 09:30 | NUR ---
DISCHARGE INSTRUCTIONS GIVEN TO THE PATIENT AND ABLE TO UNDERSTAND. ALL PAPERWORK SIGNED AND BELONGINGS ACCOUNTED FOR. PATIENT GIVEN INSTRUCTIONS ON BLOOD GLUCOSE MONITORING AND INSULIN USAGE, FOLLOW UP WITH MD FOR ABX AND HIV TREATMENT. PATIENT STATES UNDERSTANDING AND ABLE TO TEACH BACK. STATES "I HELP MY MOTHER WITH HER INSULIN SO I UNDERSTAND." PATIENT GIVEN RX FOR GLUCOMETER AND STRIPS. PATIENT DECLINED FLU AND PNEUMONIA SHOT, WELL DISCHARGE PHOTOS. EDUCATION PROVIDED BUT STILL REFUSED. IVS REMOVED AND PRESSURE APPLIED. NO BLEEDING NOTED AT THE SITE. PATIENT LEFT IN STABLE CONDITION, AMBULATORY, TO HOME WITH MOTHER. LEFT VIA TAXI.
== END 2017-07-21 09:05 | disposition home or self-care (01) | DRG 383 ==
LOC: ER 16:28 → MED 22:14 → MEDSG2 07-20 18:24
PROVIDERS: ADMIT Registered Nurse; ATTEND Registered Nurse
DX: L03.313 Cellulitis of chest wall (principal); E11.00 Type 2 diabetes mellitus with hyperosmolarity without nonketotic hyperglycemic-hyperosmolar coma (NKHHC); M60.9 Myositis, unspecified; E87.8 Other disorders of electrolyte and fluid balance, not elsewhere classified; E44.0 Moderate protein-calorie malnutrition; E87.1 Hypo-osmolality and hyponatremia; E88.09 Other disorders of plasma-protein metabolism, not elsewhere classified; E83.51 Hypocalcemia; E11.65 Type 2 diabetes mellitus with hyperglycemia; L03.114 Cellulitis of left upper limb; Z68.23 Body mass index [BMI] 23.0-23.9, adult; K06.9 Disorder of gingiva and edentulous alveolar ridge, unspecified; D50.9 Iron deficiency anemia, unspecified; A53.9 Syphilis, unspecified
CPT/HCPCS: 36415; 71045-TC; 71260-TC; 73223-TC; 76882; 80048-TC; 80053-TC; 80061-TC; 80202-TC; 82728-TC; 82962-TC; 83540-TC; 83735-TC; 84100-TC; 85025-TC; 85610-TC; 85730-TC; 86360; 86592; 87040-TC; 87081-TC; 87536; A4216; A4606; C9113; J0558; J0690; J1815; J2543; J3010; J3370; J3490; J7030; J7040; J7050; J7060; Q9967; Z7610

== ENCOUNTER 2021-03-01 12:00 | Emergency (ER) | payer OTHER ==
[~2021-03-01] VITALS: Ht 172.7 cm; Wt 65.8 kg
--- NOTE | 2021-03-01 12:00 | NUR ---
PT BIB SELF C/O HEADACHE SINCE WEDNESDAY. PT IS AAOX4, NOT IN RESPIRATORY DISTRESS, HOOKED TO PROCESS CHEESE COOKER, KEPT RESTED AND COMFORTABLE. WILL CONTINUE TO MONITOR.
--- NOTE | 2021-03-01 12:16 | NUR ---
AT BEDSIDE FOR EVAL.
--- NOTE | 2021-03-01 12:24 | NUR ---
ER PHLEB AT BEDSIDE FOR BLOOD DRAW.
[2021-03-01 12:30] LABS: BASOPHILS % (AUTO) 0.5 % (0.0-2.0); HEMATOCRIT 39 % (39-51); LYMPHOCYTES # (AUTO) 2.3 K/uL (0.8-4.8); LYMPHOCYTES % (AUTO) 44.1 % (20.0-44.0); MEAN CORPUSCULAR HGB CONC 34 g/dl (31.0-36.0); MEAN CORPUSCULAR VOLUME 78 fL (80-96); MONOCYTES # (AUTO) 0.5 K/uL (0.1-1.30); MONOCYTES % (AUTO) 9.8 % (2.0-12.0); NEUTROPHILS # (AUTO) 2.1 K/uL (1.8-8.9); NEUTROPHILS % (AUTO) 40.6 % (43.0-81.0); PLATELET COUNT (AUTO) 228 K/uL (150-450); RED BLOOD CELL COUNT(AUTO) 4.95 MIL/uL (4.5-6.0); WHITE BLOOD COUNT (AUTO) 5.1 K/uL (4.3-11.0)
[2021-03-01 12:46] LABS: CALCIUM, SERUM 8.9 mg/dL (8.5-10.1); POTASSIUM 4.1 mmol/L (3.5-5.1)
[2021-03-01 12:52] LABS: ALBUMIN 2.9 g/dL (3.4-5.0); BILIRUBIN,DIRECT 0.1 mg/dL (0.0-0.2); BILIRUBIN,TOTAL 0.2 mg/dL (0.2-1.0); TOTAL PROTEIN, SERUM 9.4 g/dL (6.4-8.2)
[2021-03-01 13:16] VITALS: BP 116/62
--- NOTE | 2021-03-01 13:17 | NUR ---
Patient discharged to home in stable condition. Written and verbal after care instructions given. Patient verbalizes understanding of instruction.
== END 2021-03-01 13:16 | disposition home or self-care (01) ==
LOC: ER 12:12
DX: L02.211 Cutaneous abscess of abdominal wall (principal); E11.9 Type 2 diabetes mellitus without complications
CPT/HCPCS: 36415; 80048-TC; 80076-TC; 83690-TC; 85025-TC